=== PATIENT | male | born 1955 | race Caucasian/White ===

== ENCOUNTER 2025-04-17 09:13 | Day surgery (SDC) | payer MEDICARE ==
--- NOTE | 2025-04-10 14:35 | ELECTROCARDIOGRAPH REPORT ---
[facility] Test Date: 2025-04-10 Test Time: 14:30:27 Pat Name: VIKA JIMENEZ Department: [facility]-PRE-OP Patient ID: [id number] Room: Gender: M Office Clinician: : 1955 Requested By: KLEBER OLIVARES Order Number: [id number] Reading MD: Dr. TESSA Duenas Measurements Intervals [place] Rate: 68 P: 22 UT: 159 QRS: 92 QRSD: 89 T: 50 QT: 385 QTc: 410 Interpretive Statements Sinus rhythm Right axis deviation Electronically Signed On 04-11-2025 14:01:[address] TESSA Duenas Please click the below link to view image of tracing.
[2025-04-10 14:50] LABS: MEAN PLATELET VOLUME 8.6 FL (7.4-10.4); PRE OP HEMATOCRIT 45.8 % (42.0-52.0); PRE OP HEMOGLOBIN 15.8 g/dL (14.0-17.9); PRE OP PLATELET COUNT 170 X10'3 (140-440); PRE OP WHITE BLOOD COUNT 6.3 10'3 (4.8-10.8); RED CELL DISTRIBUTION WIDTH 12.7 % (11.5-14.5)
[2025-04-10 15:02] LABS: CREATININE 1.36 MG/DL (0.60-1.10); PRE OP ALT 16 U/L (30-65); PRE OP ANION GAP 6 (8-16); PRE OP AST 17 U/L (10-37); PRE OP BILIRUB, TOTAL 0.8 MG/DL (0.0-1.0); PRE OP GLUCOSE 93 MG/DL (70-104); PRE OP POTASSIUM 4.1 MMOL/L (3.4-5.1); PRE OP SODIUM 140 MMOL/L (135-145); TOTAL CARBON DIOXIDE 28.8 MMOL/L (24-32); eGFR 52 ML/MIN
[~2025-04-17] VITALS: Ht 190.5 cm; Wt 110.7 kg
[2025-04-17] VITALS (22 sets, daily range): BP systolic 131–177; BP diastolic 78–107; PULSE 58–85; RESP 9–16; TEMP 97.1; O2SAT 93–100
[~2025-04-17 09:13] MED LIST: ATOR40TA72 PO; HYDR12.55 PO; PREG100C56 PO; TAMS-55 PO; VALS160T30 PO
[2025-04-17] MEDS: ringers solution, lacted 1,000 ML IV SCH (09:50)
[2025-04-17] MEDS: ceFAZolin 2gm/dext,iso 50mL 50 ML IV ONE (09:51)
[2025-04-17] MEDS ORDERED: BUPIVAcaine 2.5mg/ml inj 50ml vial (contains preservative) ONE (10:43)
[2025-04-17] MEDS ORDERED: LIDOcaine 1% 30ml preserv. free vial ONE (10:44)
[2025-04-17] MEDS ORDERED: dexamethasone sod phosphate 4mg/ml inj. ONE ×2 (11:24→11:29)
[2025-04-17] MEDS ORDERED: ondansetron/PF 4mg/2ml inj ONE (11:24)
[2025-04-17] MEDS ORDERED: midazolam 1 mg/ML 2ml injection ONE (11:24)
[2025-04-17] MEDS ORDERED: fentaNYL/PF 50MCG/1 ML 2ML syringe ONE (11:24)
[2025-04-17] MEDS ORDERED: acetaminophen 1,000mg/100ml IV 100 ML IV ONE (11:24)
[2025-04-17] MEDS ORDERED: glycopyrrolate 0.2mg/ml inj ONE (11:24)
[2025-04-17] MEDS ORDERED: LIDOcaine 2% (20mg/ml) 5ml vial ONE (11:26)
[2025-04-17] MEDS ORDERED: propofol inj 20 ML IV ONE (11:26)
[2025-04-17] MEDS ORDERED: labetalol 20mg/4ml (5mg/ml) syringe IV PRN (12:00)
[2025-04-17] MEDS ORDERED: ringers solution, lacted 1,000 ML IV SCH (12:00)
[2025-04-17] MEDS ORDERED: hydrALAZINE 20mg/ml inj. IV PRN (12:00)
[2025-04-17] MEDS ORDERED: fentaNYL/PF 50MCG/1 ML 2ML syringe IV PRN ×2 (12:00)
[2025-04-17] MEDS ORDERED: ondansetron/PF 4mg/2ml inj IV PRN (12:00)
[2025-04-17] MEDS ORDERED: HYDROcodone/acetaminophen 5mg/325mg tablet PO PRN (12:55)
--- NOTE | 2025-04-17 12:59 | OPERATIVE REPORT ---
Operative Report Providers to CC: TELLO OLIVARES MD ~ Date of Procedure: Apr 17, 2025 Pre-Operative Diagnosis: Bilateral inguinal hernias Post-Operative Diagnosis SAME as PRE-Op Procedure Performed Robotic assisted, laparoscopic bilateral inguinal hernia repair with mesh Surgeon: Tello Olivares MD FACS Instructional Design Consultant None Anesthesiologist: Lionel Renee Type of Anesthesia: General Findings: Bilateral femoral hernias Wound class I Complications None Prosthetics\Implants used: Bilateral large Dextile mesh Estimated Blood Loss: Minimal Specimen Removed: None Description of Procedure: Patient was brought to the operating room and identified by the nursing staff and the attending physician. Patient was placed supine and general anesthesia was induced. The patient's abdomen was prepped and draped in the standard sterile fashion. Preoperative antibiotics were given. Supraumbilical, midline incision was made to accommodate a 12 mm Blair port. Blair technique was used to gain access into the abdomen and the port was anchored to the fascia with 0 Vicryl suture. Abdomen was insufflated without incident. Laparoscope was inserted and the pelvis examined. Patient was placed in Trendelenburg position. Secondary, 8.5 mm robotic trochars were then placed in the right lateral left lateral upper abdomen just above the umbilical line. These were placed under laparoscopic guidance. Local anesthetic was infiltrated prior to their insertion. The [employer] robotic arm was docked to the patient. Instruments were guided intra-abdominally under laparoscopic visualization. Peritoneal rent was created starting at the left anterior superior iliac spine and carried across the anterior abdominal wall to the contralateral anterior superior iliac spine. The peritoneal flap was created and carried down to the symphysis pubis. Dissection was carried out bilaterally. Small to moderate-sized femoral hernias were encountered bilaterally. Contents were reduced and further dissection was carried out laterally. Peritoneum was dissected away from the cord structures and out laterally to accommodate 2 separate pieces of large Dextile mesh. Bilateral critical views of the myopectineal orifice were obtained. Mesh and suture was passed into the abdomen. Bilateral mesh was placed covering potential obturator, femoral, direct, and indirect hernia spaces. Mesh was anchored at Donny's ligament, rectus muscle in the midline, and out laterally just anterior to the anterior superior iliac spine. Mesh laid without wrinkles or folds. Peritoneal rent was then reapproximated with running, absorbable 2/0 V-lock suture. [place] were retrieved. Abdomen was allowed to desufflate after instruments removed and da John robotic arm undocked from the patient. Umbilical port was removed as were the secondary trochars. The fascia at the umbilical port site was closed with 0 Vicryl sutures. Skin was closed at all sites with 4-0 Monocryl sutures in a subcuticular fashion. Sterile dressings were applied. Patient was awakened and taken to the postanesthesia care unit in stable condition. Counts repoted as correct: Yes TELLO OLIVARES MD Apr 17, 2025 12:59
[2025-04-17] MEDS: morphine 4 MG/ML inj SYRINge IV PRN (13:21)
== END 2025-04-17 18:14 | disposition home or self-care (01) ==
LOC: PAS 09:13
PROVIDERS: ATTEND Surgery
DX: K40.20 Bilateral inguinal hernia, without obstruction or gangrene, not specified as recurrent (principal); I10 Essential (primary) hypertension; N40.0 Benign prostatic hyperplasia without lower urinary tract symptoms; Z79.899 Other long term (current) drug therapy
CPT/HCPCS: 36415; 49650; 80053; 82948; 85025; 93005; A4215; A4314; A4618; C1781; J0131; J1100; J2003; J2250; J2270; J2405; J2704; J3010; J3490; J7030; J7120; Z7506; Z7508; Z7512; Z7610